=== PATIENT | female | born 1995 | race Hispanic/Latino ===

== ENCOUNTER 2022-01-26 20:15 | Inpatient (IN) | payer SELFPAY ==
[2022-01-26] MEDS ORDERED: Morphine 4 MG/ML VIAL ONE ×2 (21:16→23:23)
[2022-01-26] MEDS ORDERED: Ketorolac Tromethamine 30 MG/ML VIAL ONE (21:16)
[2022-01-26] MEDS ORDERED: Ondansetron PF 4 MG/2 ML Vial ONE ×2 (21:17)
[2022-01-26 21:35] LABS: #Monocytes 0.8 10x3/uL (0.0-1.1); #Neutrophils 12.4 10x3/uL (1.5-8.4); %Basophils 0.3 % (0.0-2.0); %Eosinophils 0.1 % (0.0-6.0); %Lymphocytes 7.8 % (18.0-47.0); %Monocytes 5.3 % (0.0-10.0); %Neutrophils 85.7 % (40.0-75.0); Hemoglobin 14.1 g/dL (12.0-15.5); Mean Corpuscular HGB CONC 35.3 g/dL (32.0-36.0); Mean Corpuscular Hemoglobin 28.7 pg (27.0-33.0); Mean Corpuscular Volume 81.3 fl (81.6-98.3); Platelet Count 342 10x3/uL (150-450); RBC Distribution Width 15.3 % (11.5-14.5); Red Blood Cell (RBC) Count 4.91 10x6/uL (3.90-5.03); White Blood Cell (WBC) Count 14.4 10x3/uL (3.5-10.5)
[2022-01-26 21:45] LABS: ALT (SGPT) 773 U/L (8-55); AST (SGOT) 1171 U/L (5-34); Albumin 4.5 g/dL (3.5-5.0); Alkaline Phosphatase 276 U/L (40-110); Anion Gap 16 mmol/L (10-20); BUN (Urea Nitrogen) 12 mg/dL (7.0-18.7); Bilirubin, Total 2.5 mg/dL (0.2-1.2); Calc. Creatinine Clearance 0 mL/min (70-130); Calcium 9.3 mg/dL (7.8-10.44); Carbon Dioxide 21 mmol/L (22-29); Chloride 107 mmol/L (98-107); Estimated GFR 123; Globulin 3.5 g/dL (2.4-3.5); Glucose 119 mg/dL (70-105); Sodium 140 mmol/L (136-145)
[2022-01-26 22:01] LABS: Lipase 9386 U/L (8-78)
[2022-01-26] MEDS ORDERED: Piperacillin/Tazobactam 3.375 GM VIAL ONE (22:13)
[2022-01-27 01:18] LABS: SARS-CoV-2 NAA Rapid Test Not Detected (NotDetected)
[2022-01-27] MEDS ORDERED: Promethazine HCl 25 MG/ML VIAL ONE ×2 (01:38→21:09)
[2022-01-27] MEDS ORDERED: Ondansetron ODT 4 MG TAB PO PRN (05:13)
[2022-01-27] MEDS ORDERED: Morphine 4 MG/ML VIAL SLOW IVP PRN ×2 (05:13→06:15)
[2022-01-27] MEDS ORDERED: Ondansetron PF 4 MG/2 ML Vial IVP PRN (05:13)
[2022-01-27] MEDS ORDERED: Piperacillin/Tazobactam 3.375 GM VIAL ONE ×3 (05:45→22:26)
[2022-01-27] MEDS ORDERED: NS 0.9% w/ 20 MEQ KCL 1,000 ML ONE (05:46)
[2022-01-27] MEDS: Potassium Chloride 20 MEQ in Lactated Ringer's 1,000 ML IV SCH ×4 (06:36→19:45)
[2022-01-27 06:56] LABS: #Monocytes 0.6 10x3/uL (0.0-1.1); #Neutrophils 6.4 10x3/uL (1.5-8.4); %Basophils 0.3 % (0.0-2.0); %Eosinophils 0.1 % (0.0-6.0); %Lymphocytes 18.5 % (18.0-47.0); %Neutrophils 73.5 % (40.0-75.0); Hemoglobin 12.4 g/dL (12.0-15.5); Mean Corpuscular HGB CONC 34.7 g/dL (32.0-36.0); Mean Corpuscular Hemoglobin 28.6 pg (27.0-33.0); Mean Corpuscular Volume 82.4 fl (81.6-98.3); Mean Platelet Volume 10.6 fl (7.4-10.4); Platelet Count 283 10x3/uL (150-450); RBC Distribution Width 15.4 % (11.5-14.5); Red Blood Cell (RBC) Count 4.33 10x6/uL (3.90-5.03); White Blood Cell (WBC) Count 8.8 10x3/uL (3.5-10.5)
[2022-01-27 07:06] LABS: ALT (SGPT) 641 U/L (8-55); AST (SGOT) 576 U/L (5-34); Albumin 3.6 g/dL (3.5-5.0); Alkaline Phosphatase 247 U/L (40-110); Anion Gap 15 mmol/L (10-20); BUN (Urea Nitrogen) 11 mg/dL (7.0-18.7); Bilirubin, Total 1.1 mg/dL (0.2-1.2); Calc. Creatinine Clearance 0 mL/min (70-130); Calcium 8.4 mg/dL (7.8-10.44); Carbon Dioxide 20 mmol/L (22-29); Chloride 114 mmol/L (98-107); Estimated GFR 124; Glucose 82 mg/dL (70-105); Potassium 3.9 mmol/L (3.5-5.1); Protein, Total 6.6 g/dL (6.0-8.3); Sodium 145 mmol/L (136-145)
[2022-01-27 07:18] LABS: Lipase 2254 U/L (8-78)
[2022-01-27] MEDS ORDERED: Albuterol Sulfate 2.5 mg/3 ml Neb NEB PRN (08:25)
[2022-01-27] MEDS ORDERED: Enoxaparin Sodium 40 MG/0.4 ML SYRINGE ONE (09:09)
[2022-01-27] MEDS: Enoxaparin Sodium 40 MG/0.4 ML SYRINGE SC SCH (09:22)
[2022-01-27] MEDS ORDERED: Fentanyl 100 MCG/2 ML VIAL ONE ×2 (12:38→19:48)
[2022-01-27] MEDS ORDERED: Ondansetron PF 4 MG/2 ML Vial ONE (12:54)
[2022-01-27] MEDS: Fentanyl 100 MCG/2 ML VIAL SLOW IVP PRN ×2 (13:13→19:46)
[2022-01-27] MEDS: Piperacillin/Tazobactam 3.375 GM in Sodium Chloride 0.9% 100 ML IVPB SCH ×2 (14:53→22:32)
[2022-01-27] MEDS ORDERED: Ketorolac Tromethamine 30 MG/ML VIAL IVP PRN (18:31)
[2022-01-27] MEDS ORDERED: Scopolamine 1.5 mg/72 hour Patch TD SCH (18:45)
[2022-01-27] MEDS ORDERED: Ketorolac Tromethamine 30 MG/ML VIAL IVP SCH (18:45)
[2022-01-27] MEDS ORDERED: Ondansetron ODT 4 MG TAB ONE (20:47)
[2022-01-27] MEDS ORDERED: Morphine 2 MG/ML VIAL ONE (21:09)
[2022-01-28 01:03] VITALS: BMI 47.5
[2022-01-28] MEDS: Potassium Chloride 20 MEQ in Lactated Ringer's 1,000 ML IV SCH (03:18)
[2022-01-28] MEDS: Piperacillin/Tazobactam 3.375 GM in Sodium Chloride 0.9% 100 ML IVPB SCH (05:54)
[2022-01-28] MEDS ORDERED: Ketorolac Tromethamine 30 MG/ML VIAL IVP PRN (06:35)
[2022-01-28] MEDS ORDERED: EPINEPHrine 1 MG/ML AMP ONE (07:31)
[2022-01-28] MEDS ORDERED: Bupivacaine PF 0.5% 30 ML VIAL ONE (07:32)
[2022-01-28] MEDS ORDERED: Iopamidol 30 ML ONE (07:32)
[2022-01-28] MEDS ORDERED: Fentanyl 100 MCG/2 ML VIAL ONE ×2 (07:34→10:38)
[2022-01-28] MEDS ORDERED: PROPOFOL 20 ML ONE (07:34)
[2022-01-28] MEDS: Enoxaparin Sodium 40 MG/0.4 ML SYRINGE SC SCH (08:31)
[2022-01-28] MEDS ORDERED: Lidocaine 2% PF 5 ML VIAL ONE (09:12)
[2022-01-28] MEDS ORDERED: Rocuronium Bromide 10 MG/ML (10ML VIAL) ONE (09:13)
[2022-01-28] MEDS ORDERED: Acetaminophen 500 MG TAB PO PRN (09:21)
[2022-01-28] MEDS ORDERED: Ibuprofen 600 MG TAB PO PRN (09:21)
[2022-01-28] MEDS ORDERED: HYDROcodone/Acetaminophen 5/325 mg Tablet PO PRN (09:21)
[2022-01-28] MEDS ORDERED: Dexamethasone 4 mg/ml Vial ONE (09:40)
[2022-01-28] MEDS ORDERED: Ondansetron PF 4 MG/2 ML Vial ONE (09:40)
[2022-01-28] MEDS ORDERED: Acetaminophen 500 MG TAB PO SCH (10:00)
[2022-01-28] MEDS ORDERED: Glycopyrrolate 0.2 MG/ML 5 ML SYRINGE ONE (10:17)
[2022-01-28 12:32] LABS: #Basophils 0.1 10x3/uL (0.0-0.2); #Eosinphils 0.1 10x3/uL (0.0-0.5); #Monocytes 0.3 10x3/uL (0.0-1.1); #Neutrophils 10.5 10x3/uL (1.5-8.4); %Basophils 0.5 % (0.0-2.0); %Eosinophils 0.7 % (0.0-6.0); %Lymphocytes 13.6 % (18.0-47.0); %Monocytes 2.6 % (0.0-10.0); %Neutrophils 80.2 % (40.0-75.0); ALT (SGPT) 378 U/L (8-55); AST (SGOT) 119 U/L (5-34); Albumin 3.7 g/dL (3.5-5.0); Alkaline Phosphatase 198 U/L (40-110); Anion Gap 15 mmol/L (10-20); BUN (Urea Nitrogen) 10 mg/dL (7.0-18.7); Bilirubin, Total 0.6 mg/dL (0.2-1.2); Calc. Creatinine Clearance 244 mL/min (70-130); Calcium 8.7 mg/dL (7.8-10.44); Carbon Dioxide 20 mmol/L (22-29); Chloride 107 mmol/L (98-107); Estimated GFR 124; Globulin 2.8 g/dL (2.4-3.5); Glucose 71 mg/dL (70-105); Hemoglobin 11.9 g/dL (12.0-15.5); Mean Corpuscular Hemoglobin 28.7 pg (27.0-33.0); Mean Corpuscular Volume 84.5 fl (81.6-98.3); Mean Platelet Volume 10.8 fl (7.4-10.4); Platelet Count 238 10x3/uL (150-450); Potassium 4.1 mmol/L (3.5-5.1); Protein, Total 6.5 g/dL (6.0-8.3); RBC Distribution Width 15.2 % (11.5-14.5); Red Blood Cell (RBC) Count 4.14 10x6/uL (3.90-5.03); Sodium 138 mmol/L (136-145); White Blood Cell (WBC) Count 13.1 10x3/uL (3.5-10.5)
[2022-01-28 17:49] VITALS: BP 133/87; TEMP 98
== END 2022-01-28 18:20 | disposition home or self-care (01) | DRG 418 ==
LOC: CSHERS 20:15 → CSHERHOLD 01-27 06:04 → CSHTELE 01-27 23:34
PROVIDERS: ADMIT Emergency Medicine; ATTEND Internal Medicine
PROC: BF111ZZ Fluoroscopy of Biliary and Pancreatic Ducts using Low Osmolar Contrast (ICD-10-PCS; principal; 2022-01-28)
PROC: 0FT44ZZ Resection of Gallbladder, Percutaneous Endoscopic Approach (ICD-10-PCS; 2022-01-28)
DX: K85.10 Biliary acute pancreatitis without necrosis or infection (principal); K80.66 Calculus of gallbladder and bile duct with acute and chronic cholecystitis without obstruction; Z68.42 Body mass index [BMI] 45.0-49.9, adult; K76.0 Fatty (change of) liver, not elsewhere classified; E66.01 Morbid (severe) obesity due to excess calories; J45.909 Unspecified asthma, uncomplicated; Z83.3 Family history of diabetes mellitus; Z98.890 Other specified postprocedural states; Z20.822 Contact with and (suspected) exposure to COVID-19
CPT/HCPCS: 36415; 47532; 76705; 80053; 83690; 83735; 85025; 88304; 93005; 96365; 96366; 96375; 96376; C1889; J0171; J1100; J1610; J1650; J1885; J2001; J2270; J2405; J2543; J2550; J2704; J3010; J3480; J3490; J7120; Q0162; Q9967; S0020; U0002